=== PATIENT | female | born 1960 | race Caucasian/White ===

== ENCOUNTER 2018-01-18 15:22 | Outpatient (CLI) | payer OTHER ==
--- NOTE | 2018-01-19 15:38 | OP Clinic Progress Note ---
REASON FOR VISIT: This 57-year-old female is seen with a concern about persistent pressure and discomfort in her right ear. She has had a left-sided tympanoplasty in the past. She has been nicely treated with a course of cephalexin by the best history possible from the patient. She feels at least moderately improved. I cleaned cerumen from both ear canals. The left ear tympanoplasty is holding up well with no evident perforation. From the general estimation, I think the erythema of the eardrum has improved. There is no hole. No perforation as well described by Dr. Patricia. Patient she has an additional complaint of feeling lumpiness in her throat. I used a flexible fiberoptic laryngoscopy with an adult laryngoscope. I do not see evidence of mass or tumor. There is no palpable neck mass. The thyroid is not tender and there is no mass palpable in the thyroid. She is slightly tender overlying the greater cornu cartilage area in the hyoid and sometimes this rubs. This also tends to be a little more tender with patients that have reflux and that is the case here. I do not see evidence of mass or tumor, nor is there a palpable abnormal mass of the neck. PLAN: The patient seemed to significantly want some additional treatment. I followed up with an additional course of cephalexin as that has seemed to improve her and she had no difficulty with taking it. Follow up on a p.r.n. basis and continue her follow up with Dr. Patricia. cc: Dr. Sean VEGA
== END 2018-01-18 15:23 ==
LOC: ENT 15:22
PROVIDERS: ATTEND Otolaryngology
DX: H92.01 Otalgia, right ear (principal); R09.89 Other specified symptoms and signs involving the circulatory and respiratory systems
CPT/HCPCS: 31575; 99203